=== PATIENT | female | born 1980 | race Caucasian/White ===

== ENCOUNTER 2020-01-19 11:42 | Outpatient (CLI) | payer SELFPAY ==
[2020-01-19 11:51] VITALS: BMI 33.3
--- NOTE | 2020-01-19 11:51 | ECG_ITS ---
NAME OF STUDY: TREADMILL STRESS TEST INDICATION: Fatigue, Chest pain, Shortness of breath Baseline blood pressure of 109/96 mm Hg, heart rate 93 beats per minute and oxygen saturation 98%. EKG showed normal sinus rhythm, normal axis with normal ST-Ts. The patient exercised for 9 minutes on a standard Kaushik protocol. Patient attained a maximum heart rate of 182 beats per minute(101 % of the maximum predicted heart rate) with a blood pressure at the peak exercise of 172/70 mm Hg and oxygen saturation 86%. The EKG at the peak exercise revealed sinus tachycardia with no significant ST-T wave changes. Patient did not have any chest pain or any significant arrhythmias with the exercise During the recovery phase, there were no new changes. Isolated PVCs noted in recovery. Blood pressure at the end of the recovery phase was 103/83 mm Hg with a heart rate of 113 beats per minute and oxygen saturation 96%. CONCLUSION: 1. Normal EKG response to treadmill exercise. 2. No exercise-induced chest pain or cardiac arrhythmia 3. Good exercise tolerance, attained a maximum of 10.2 METs. Maximum VO2 of 35.7 mL/kg/min. 4. Baseline normal blood pressure with normal response to exercise. Electronically Signed On 01-19-2020 18:36:48 CDT by Daina Harding M.D. [email or web address]
[2020-01-19 13:17] VITALS: BP 109/95; PULSE 113
== END 2020-01-19 11:43 | disposition home or self-care (01) ==
LOC: CDL 11:49
PROVIDERS: PCP Nurse Practitioner Primary Care; Visit Provider Nurse Practitioner Primary Care
DX: R53.83 Other fatigue (principal); R55 Syncope and collapse
CPT/HCPCS: 93017